=== PATIENT | female | born 1990 | race Caucasian/White ===

== ENCOUNTER 2023-03-18 22:15 | Inpatient (IN) | payer OTHER ==
[~2023-03-18] VITALS: Ht 165.1 cm; Wt 63.5 kg
[2023-03-18] MEDS ORDERED: ONDANSETRON HCL/PF 4 MG/2 ML VIAL ONE (22:48)
--- NOTE | 2023-03-18 22:58 | NUR ---
[id number] FROM HOME WITH CC OF N/V AND FEVER T=99.8 TOOK ADVIL 2PM.
[2023-03-18] MEDS ORDERED: ONDANSETRON HCL/PF 4 MG/2 ML VIAL IVP ONE (23:00)
[2023-03-18] MEDS ORDERED: IV NS 0.9% 1,000 ML BAG IV ONE (23:00)
[2023-03-18 23:34] LABS: BASOPHILS % (AUTO) 0.1 % (0.0-2.0); HEMATOCRIT 41 % (33-45); HEMOGLOBIN 13.4 g/dL (11.5-14.8); LYMPHOCYTES # (AUTO) 0.8 K/uL (0.8-4.8); LYMPHOCYTES % (AUTO) 3.7 % (20.0-44.0); MEAN CORPUSCULAR HGB CONC 33 g/dl (31.0-36.0); MEAN CORPUSCULAR VOLUME 84 fL (82-100); MONOCYTES # (AUTO) 0.8 K/uL (0.1-1.30); MONOCYTES % (AUTO) 3.8 % (2.0-12.0); NEUTROPHILS # (AUTO) 20.3 K/uL (1.8-8.9); NEUTROPHILS % (AUTO) 92.4 % (43.0-81.0); PLATELET COUNT (AUTO) 434 K/uL (150-450); RED BLOOD CELL COUNT(AUTO) 4.93 MIL/uL (4.0-5.2); WHITE BLOOD COUNT (AUTO) 21.9 K/uL (4.3-11.0)
[2023-03-18 23:43] LABS: CALCIUM, SERUM 9.8 mg/dL (8.5-10.1); CARBON DIOXIDE 19 mmol/L (21-32); CHLORIDE 103 mmol/L (98-107); CREATININE 0.7 mg/dL (0.6-1.3); GLUCOSE 134 mg/dL (74-106); POTASSIUM 3.3 mmol/L (3.5-5.1); SODIUM SERUM 139 mmol/L (136-145); UREA NITROGEN, BLOOD 9 mg/dL (7-18)
--- NOTE | 2023-03-18 23:55 | NUR ---
LACTIC ACID 3.1, DR ACKERMAN AWARE
[2023-03-19] LABS: ALANINE AMINOTRANSFERASE 30 U/L (12-78); ALKALINE PHOSPHATASE 57 U/L (46-116); ASPARTATE AMINOTRANSFERASE 16 U/L (15-37); BILIRUBIN,DIRECT 0.1 mg/dL (0.0-0.2); BILIRUBIN,TOTAL 0.6 mg/dL (0.2-1.0); LIPASE 226 U/L (73-393); TOTAL PROTEIN, SERUM 8.4 g/dL (6.4-8.2)
[2023-03-19] MEDS ORDERED: PIPERACILLIN /TAZOBACTAM 3.375 G in IV D5W 50 ML IV ONE (00:30)
[2023-03-19] MEDS ORDERED: IV NS 0.9% 1,000 ML BAG IV ONE (00:30)
--- NOTE | 2023-03-19 00:34 | NUR ---
MOVE SHEET SUBMITTED
--- NOTE | 2023-03-19 00:50 | NUR ---
Called from [place] family caseworker Jennifer Burks for update. CM updated and all questions answered.
--- NOTE | 2023-03-19 01:05 | NUR ---
COVID SWAB COLLECTED AND SENT TO LAB.
--- NOTE | 2023-03-19 01:37 | NUR ---
Per [place] shelter case manager Jennifer Burks, trying to transfer pt to [facility]
[2023-03-19] MEDS ORDERED: ONDANSETRON HCL/PF 4 MG/2 ML VIAL ONE (01:50)
--- NOTE | 2023-03-19 01:54 | NUR ---
REPEAT LACTIC ACID DONE BY CHANNEL DIRECTOR
[2023-03-19] MEDS ORDERED: PIPERACI/TAZO 3.375GM/D5W 50ML PB IV ONE (02:00)
--- NOTE | 2023-03-19 02:49 | NUR ---
LACTIC ACID 2.71
[2023-03-19 03:01] LABS: BILIRUBIN,URINE NEGATIVE (NEGATIVE); COLOR,URINE YELLOW (YELLOW); LEUKOCYTE ESTERASE ,URINE 3+ (NEGATIVE); NITRITE, URINE NEGATIVE (NEGATIVE); PROTEIN,URINE TRACE mg/dl (NEGATIVE); UGLUCOSE NEGATIVE (NEGATIVE); UROBILINOGEN,URINE 0.2 EU/dL (0.2)
[2023-03-19 03:16] LABS: BACTERIA,URINE Many /HPF (None Seen); WBC,URINE 51-80 /HPF (0-3)
--- NOTE | 2023-03-19 05:51 | NUR ---
DR TYRON PERES ON PHONE CALL WITH DR JAYDON PERES HOSPITALIST
[2023-03-19] MEDS ORDERED: ACETAMINOPHEN 325 MG TABLET PO PRN (06:00)
[2023-03-19] MEDS ORDERED: MORPHINE SULFATE INJ 2 MG/ML DISP.SYRIN IV PRN (06:00)
[2023-03-19] MEDS ORDERED: ONDANSETRON HCL/PF 4 MG/2 ML VIAL IVP PRN (06:00)
[2023-03-19] MEDS: IV NS 0.9% 1,000 ML IV SCH ×2 (06:32→21:45)
--- NOTE | 2023-03-19 07:48 | NUR ---
GOT BED 321-2 ADMITTING INFORMED.
--- NOTE | 2023-03-19 08:02 | NUR ---
REPORT GIVEN TO AMA MCCLENDON
--- NOTE | 2023-03-19 08:42 | NUR ---
PATIENT TRANSFERRED TO [facility], ALL CARE ENDORSED TO AMA MCCLENDON Addendum: 03/19/23 at 0843 darius GARRETT PATIENT WAS TRANSFERRED TO [facility]-
[2023-03-19] MEDS: CEFEPIME 2 GM in IV D5W 100 ML IV SCH ×2 (09:34→20:07)
[2023-03-19] MEDS: ENOXAPARIN SODIUM 40 MG/0.4 ML DISP.SYRIN SQ SCH (09:39)
--- NOTE | 2023-03-19 11:30 | NUR ---
STATISTICAL SECRETARYRELIABILITY MANAGER NOTES ADMITTED A 32 YO PATIENT FROM HOME AND C/C OF NAUSEA AND VOMITTING , FEVER AND PAIN ON THE RIGHT UPPER QUADRANT , CAME IN VIA GURNEY FROM ER , ABLE TO TRANSFER BY HERSELF FROM GURNEY TO BED , KEPT COMFORTABLE AND ON GOING IV CONTINUE FROM ER , IV ACCESS LEFT AC WITH NS @75 ML /HOUR , BODY ASSESSMENT DONE AND NO SKIN BREAKDOWN NOTED , ORACLE SQL DEVELOPER ATTACHED , V/S TAKEN AND RECORDED , ROOM AIR NO SOB OR DISTRESS NOTED , NO C/O OF PAIN AND DISCOMFORT NOTED , CONTINENT WITH BOWEL AND BLADDER AND BRP , ALL DUE MEDS GIVEN ORDERED , SAFETY MEASURES PROVIDED , CALL LIGHT WITHIN REACH , ALL NEEDS ATTENDED .
[2023-03-19 12:00] VITALS: BP 117/71
[2023-03-19 16:13] VITALS: BP 110/63
--- NOTE | 2023-03-19 19:11 | NUR ---
RN CLOSING NOTES PATIENT IN BED A/O X4 , WITH IV OF NS AT 75CC/HOUR , NO SOB AND DISTRESS , C/O OF PAIN HEADACHE AND TYLENOL GIVEN ORDERED, TELE READING WITH SR 91 , IV ACCESS WITH NS @75ML /HOURS , ABLE TO GO TO BATH ROOM STABLE AT THIS TIME AND ENDORSED TO NEXT SHIFT
--- NOTE | 2023-03-19 19:33 | NUR ---
RN OPENING NOTE; RECEIVED PT IN BED AWAKED AOX4 ABLE TO MAKE NEEDS KNOWN,ON RM AIR ROL WELL SAT 98%,NO SOB/DISTRESS NOTED,NO COMPLAIN OF PAIN/DISCOMFORT AT THIS TIME,IV ACCESS LAC 20G WITH NS 75ML/HR INFUSING WELL,SAFETY MEASURE IN PLACE,CALL LIGHT WITHIN REACH,WILL CONTINUE TO MONITOR.
[2023-03-19 20:00] VITALS: BP 115/66
[2023-03-19] MEDS ORDERED: POTASSIUM CHLORIDE 20 MEQ TAB.PRT.SR PO ONE (22:00)
[2023-03-20] VITALS (7 sets, daily range): BP systolic 104–130; BP diastolic 55–79
[2023-03-20 05:50] LABS: BASOPHILS % (AUTO) 0.2 % (0.0-2.0); EOSINOPHILS % (AUTO) 0.6 % (0.0-6.0); HEMATOCRIT 38 % (33-45); LYMPHOCYTES # (AUTO) 2.2 K/uL (0.8-4.8); LYMPHOCYTES % (AUTO) 13.5 % (20.0-44.0); MEAN CORPUSCULAR HGB CONC 32 g/dl (31.0-36.0); MEAN CORPUSCULAR VOLUME 85 fL (82-100); MONOCYTES # (AUTO) 1.1 K/uL (0.1-1.30); MONOCYTES % (AUTO) 6.5 % (2.0-12.0); NEUTROPHILS # (AUTO) 12.8 K/uL (1.8-8.9); NEUTROPHILS % (AUTO) 79.2 % (43.0-81.0); PLATELET COUNT (AUTO) 362 K/uL (150-450); RED BLOOD CELL COUNT(AUTO) 4.46 MIL/uL (4.0-5.2); WHITE BLOOD COUNT (AUTO) 16.2 K/uL (4.3-11.0)
[2023-03-20 06:16] LABS: ALBUMIN 3.1 g/dL (3.4-5.0); BILIRUBIN,TOTAL 0.3 mg/dL (0.2-1.0); CREATININE 0.5 mg/dL (0.6-1.3); MAGNESIUM 2.4 mg/dL (1.8-2.4); PHOSPHORUS 2.6 mg/dL (2.5-4.9); POTASSIUM 3.9 mmol/L (3.5-5.1)
--- NOTE | 2023-03-20 06:20 | NUR ---
RN CLOSING NOTE; PATIENT IN BED AWAKED AOX4 ABLE TO MAKE NEEDS KNOWN,ON RM AIR ROL WELL SAT 99%,NO SOB/DISTRESS NOTED,NO COMPLAIN OF PAIN/DISCOMFORT DURING SHIFT,DUE MEDS GIVEN ORDER,ALL NEEDS ATTENDED,IV ACCESS LAC 20G WITH NS 75ML/HR INFUSING WELL,BRP PT WITH STEADY GAIT,SAFETY MEASURE IN PLACE,CALL LIGHT WITHIN REACH,WILL ENDORSED TO NEXT SHIFT..
--- NOTE | 2023-03-20 08:00 | NUR ---
RUG DRY ROOM ATTENDANT OPENING NOTE Patient in bed, awake. A/O x 4, able to make needs known. On room air, breathing evenly and unlabored. No SOB or s/s of distress noted. IV access on ERICK #20 infusing NS at 75 ml/hr. On external panel monitor showing SR , HR 76. No complaints of pain or discomfort at this time. Safety precautions in place: bed in low, locked position; siderails up x 2; call light within reach. Will continue to monitor.
[2023-03-20] MEDS: IV NS 0.9% 1,000 ML IV SCH (08:40)
[2023-03-20] MEDS: ENOXAPARIN SODIUM 40 MG/0.4 ML DISP.SYRIN SQ SCH (08:41)
[2023-03-20] MEDS: CEFEPIME 2 GM in IV D5W 100 ML IV SCH (08:41)
[2023-03-20] MEDS ORDERED: CEFTRIAXONE 1 G in IV D5W 50 ML IV SCH ×2 (09:30→12:00)
[2023-03-20] MEDS ORDERED: Potassium Chloride 10 MEQ in IV NS 0.9% 1,000 ML IV PRN (09:30)
[2023-03-20] MEDS: Potassium Chloride 10 MEQ in IV NS 0.9% 1,000 ML IV SCH ×2 (11:10→21:40)
--- NOTE | 2023-03-20 19:28 | NUR ---
REAL ESTATE ATTORNEY CLOSING NOTE Patient in bed, resting. A/O x 4, able to make needs known. Stable on room air, breathing evenly and unlabored. No SOB or s/s of distress noted. IV access on LAC #20 infusing NS with 10 meqs Potassium at 100 ml/hr. On external elevated guard showing SR , HR on the 80's. No complaints of pain or discomfort at this time. All needs attended to. due meds given. Safety precautions in place: bed in low, locked position; siderails up x 2; call light within reach. Will endorse to pulp drier firer nurse for AH.
--- NOTE | 2023-03-20 19:50 | NUR ---
RN OPENING NOTE RECEIVED PT IN BED, AWAKE. PT A/O X4, ABLE TO MAKE NEEDS KNOWN. ON ROOM AIR, AND TOLERATING RA WELL. NO SOB, NO RESPIRATORY DISTRESS NOTED. PT ON TELE MONITOR READING SR WITH HR: 93. NO COMPLAIN OF PAIN, OR DISCOMFORT AT THIS TIME. IV ACCESS TO LEFT AC # 20G, WITH NS INFUSING AT 75ML/HR , IV INTACT, AND PATENT. SAFETY MEASURE IN PLACE: CALL LIGHT WITHIN REACH, BED IN LOW POSITION, SIDE RAILS UP X2. WILL CONTINUE TO MONITOR PT.
[2023-03-21 05:45] LABS: BASOPHILS % (AUTO) 0.4 % (0.0-2.0); EOSINOPHILS % (AUTO) 0.9 % (0.0-6.0); HEMATOCRIT 36 % (33-45); LYMPHOCYTES # (AUTO) 2.3 K/uL (0.8-4.8); LYMPHOCYTES % (AUTO) 23.5 % (20.0-44.0); MEAN CORPUSCULAR HGB CONC 33 g/dl (31.0-36.0); MEAN CORPUSCULAR VOLUME 83 fL (82-100); MONOCYTES # (AUTO) 0.6 K/uL (0.1-1.30); NEUTROPHILS # (AUTO) 6.9 K/uL (1.8-8.9); NEUTROPHILS % (AUTO) 69.2 % (43.0-81.0); PLATELET COUNT (AUTO) 395 K/uL (150-450); RED BLOOD CELL COUNT(AUTO) 4.36 MIL/uL (4.0-5.2); WHITE BLOOD COUNT (AUTO) 9.9 K/uL (4.3-11.0)
[2023-03-21 05:57] LABS: CALCIUM, SERUM 8.8 mg/dL (8.5-10.1); CREATININE 0.5 mg/dL (0.6-1.3); MAGNESIUM 2.1 mg/dL (1.8-2.4); POTASSIUM 3.3 mmol/L (3.5-5.1)
--- NOTE | 2023-03-21 06:36 | NUR ---
MS RN CLOSING NOTE LEFT PT IN BED, SLEEPING. PT A/O X4, ABLE TO MAKE NEEDS KNOWN. ON ROOM AIR, AND TOLERATING RA WELL. NO SOB, NO RESPIRATORY DISTRESS NOTED. PT IS NO LONGER ON TELE MONITOR . NO COMPLAIN OF PAIN, OR DISCOMFORT AT THIS TIME. IV ACCESS TO LEFT AC # 20G, WITH NS INFUSING AT 75ML/HR , IV INTACT, AND PATENT. SAFETY MEASURE IN PLACE: CALL LIGHT WITHIN REACH, BED IN LOW POSITION, SIDE RAILS UP X2. WILL ENDORSE PT TO INCOMING SHIFT NURSE FOR CONTINUITY OF CARE.
[2023-03-21] MEDS: Potassium Chloride 10 MEQ in IV NS 0.9% 1,000 ML IV SCH (06:51)
[2023-03-21 07:30] VITALS: BP 111/69
--- NOTE | 2023-03-21 07:54 | NUR ---
MS RN OPENING NOTE Patient in bed, awake. A/O x 4, able to make needs known. On room air, breathing evenly and unlabored. No SOB or s/s of distress noted. IV access on LAC #20 infusing NS with 10 meqs potassium at 75 ml/hr. No complaints of pain or discomfort at this time. Safety precautions in place: bed in low, locked position; siderails up x 2; call light within reach. Will continue to monitor.
[2023-03-21] MEDS ORDERED: LEVO250T59 PO (08:30)
[2023-03-21] MEDS ORDERED: POTASSIUM CHLORIDE 20 MEQ TAB.PRT.SR PO ONE ×2 (08:30→10:00)
[2023-03-21] MEDS: ENOXAPARIN SODIUM 40 MG/0.4 ML DISP.SYRIN SQ SCH (08:33)
--- NOTE | 2023-03-21 12:00 | NUR ---
PLANT NURSERY WORKER NOTES RECIEVED ORDER FOR DISCHARGE. PATIENT IS A/O X4, ABLE TO MAKE NEEDS KNOWN. STABLE ON ROOM AIR, NO SIGNS OF DISTRESS NOTED. DISCHARGE INSTRUCTION GIVEN, PATIENT VERBALIZED UNDERSTANDING. ALL BELONGINGS ACCOUNTED FOR, BELONGING SHEET SIGNED. PATIENT DENIES ANY PAIN OR DISCOMFORT AT THIS TIME. IV ACCESS REMOVED, CATHETER TIP INTACT AND PRESSURE DRESSING APPLIED. EXIT CARE FOLDER GIVEN, PATIENT LEFT IN STABLE CONDITION WITH .
== END 2023-03-21 11:15 | disposition home or self-care (01) | DRG 720 ==
LOC: ER 22:17 → TELE 03-19 08:13 → MED 03-20 13:19
PROVIDERS: ADMIT Internal Medicine; ATTEND Internal Medicine
DX: A41.9 Sepsis, unspecified organism (principal); E86.0 Dehydration; N39.0 Urinary tract infection, site not specified; N63.10 Unspecified lump in the right breast, unspecified quadrant
CPT/HCPCS: 36415; 71045-TC; 76700-TC; 80048-TC; 80053-TC; 80076-TC; 81001; 83605-TC; 83690-TC; 83735-TC; 84100-TC; 84703-TC; 85025-TC; 87040-TC; 87081-TC; 87086-TC; A4223; C9803; G0378; J0692; J0696; J1650; J2405; J2543; J3480; J7030; J7050; J7060

== ENCOUNTER 2023-03-31 17:18 | Emergency (ER) | payer OTHER ==
[~2023-03-31] VITALS: Ht 165.1 cm; Wt 63.5 kg
[~2023-03-31 17:18] MED LIST: LEVO250T59 PO
--- NOTE | 2023-03-31 17:45 | NUR ---
RECEIVED PT 32 YRS FEMALE REFFED FROM [facility] FOR ELEVATED WBC DINESES N/V OR ABDOMINALE PAIN
--- NOTE | 2023-03-31 18:00 | NUR ---
SEEN BY ABDULLAHI MEDINA
--- NOTE | 2023-03-31 18:10 | NUR ---
INSERTED ANGO CATHETER G 20 ON LT AC BLOOD DROW AND BLOOD CULTURE X 2 SENT TO LAB AND SENT TO LAB UA SENT BY BERTIN NURSE AMA
[2023-03-31] MEDS ORDERED: ONDANSETRON HCL/PF 4 MG/2 ML VIAL ONE (18:19)
[2023-03-31] MEDS ORDERED: ONDANSETRON HCL/PF 4 MG/2 ML VIAL IVP ONE (18:30)
[2023-03-31] MEDS ORDERED: IV NS 0.9% 1,000 ML BAG IV ONE (18:30)
[2023-03-31 19:07] LABS: BASOPHILS # (AUTO) 0.1 K/uL (0.0-0.2); BASOPHILS % (AUTO) 0.3 % (0.0-2.0); EOSINOPHILS % (AUTO) 0.3 % (0.0-6.0); HEMATOCRIT 39 % (33-45); HEMOGLOBIN 12.7 g/dL (11.5-14.8); LYMPHOCYTES # (AUTO) 2.2 K/uL (0.8-4.8); LYMPHOCYTES % (AUTO) 11.5 % (20.0-44.0); MEAN CORPUSCULAR HGB CONC 32 g/dl (31.0-36.0); MEAN CORPUSCULAR VOLUME 83 fL (82-100); MONOCYTES # (AUTO) 0.5 K/uL (0.1-1.30); MONOCYTES % (AUTO) 2.6 % (2.0-12.0); NEUTROPHILS # (AUTO) 16.2 K/uL (1.8-8.9); NEUTROPHILS % (AUTO) 85.3 % (43.0-81.0); PLATELET COUNT (AUTO) 493 K/uL (150-450); RED BLOOD CELL COUNT(AUTO) 4.72 MIL/uL (4.0-5.2); WHITE BLOOD COUNT (AUTO) 18.9 K/uL (4.3-11.0)
--- NOTE | 2023-03-31 19:20 | NUR ---
HAND OFF DOROTA SERRATO
[2023-03-31 19:40] LABS: CALCIUM, SERUM 9.6 mg/dL (8.5-10.1); CARBON DIOXIDE 27 mmol/L (21-32); CHLORIDE 105 mmol/L (98-107); CREATININE 0.7 mg/dL (0.6-1.3); GLUCOSE 103 mg/dL (74-106); POTASSIUM 3.6 mmol/L (3.5-5.1); SODIUM SERUM 140 mmol/L (136-145); UREA NITROGEN, BLOOD 14 mg/dL (7-18)
[2023-03-31 19:49] LABS: ALANINE AMINOTRANSFERASE 32 U/L (12-78); ALBUMIN 3.8 g/dL (3.4-5.0); ALKALINE PHOSPHATASE 55 U/L (46-116); ASPARTATE AMINOTRANSFERASE 15 U/L (15-37); BILIRUBIN,TOTAL 0.2 mg/dL (0.2-1.0); TOTAL PROTEIN, SERUM 8.2 g/dL (6.4-8.2)
[2023-03-31 19:50] LABS: BILIRUBIN,URINE NEGATIVE (NEGATIVE); COLOR,URINE YELLOW (YELLOW); LEUKOCYTE ESTERASE ,URINE NEGATIVE (NEGATIVE); NITRITE, URINE NEGATIVE (NEGATIVE); PROTEIN,URINE NEGATIVE (NEGATIVE); UGLUCOSE NEGATIVE (NEGATIVE); UROBILINOGEN,URINE 0.2 EU/dL (0.2)
[2023-03-31 20:00] LABS: BACTERIA,URINE None seen /HPF (None Seen); WBC,URINE 0-2 /HPF (0-3)
[2023-03-31 20:01] LABS: MUCUS,URINE Few /LPF (None Seen); URIC ACID CRYSTALS,URINE Many /HPF (None Seen)
[2023-03-31] MEDS ORDERED: DOCU-141 PO (21:15)
[2023-03-31] MEDS ORDERED: HYDR30CR79 TP (21:15)
[2023-03-31] MEDS ORDERED: ONDA4TAB5 PO (21:15)
[2023-03-31 21:59] VITALS: BP 118/81
--- NOTE | 2023-03-31 22:00 | NUR ---
Patient discharged to home in stable condition. Written and verbal after care instructions given. Patient verbalizes understanding of instruction.
== END 2023-03-31 22:01 | disposition home or self-care (01) ==
LOC: ER 17:24
DX: D72.829 Elevated white blood cell count, unspecified (principal); Z98.890 Other specified postprocedural states; Z79.899 Other long term (current) drug therapy
CPT/HCPCS: 99285; 96374; 71045; 96361; 93005; 84145; 85025; 80048; 87040 ×2; 87086; 83605; 80076; 81001; 36415; 84484; 85730; J2405; J7030

== ENCOUNTER 2023-04-11 19:22 | Emergency (ER) | payer OTHER ==
[~2023-04-11] VITALS: Ht 165.1 cm; Wt 63.5 kg
[~2023-04-11 19:22] MED LIST changes: +DOCU-141 PO; +HYDR30CR79 TP; +ONDA4TAB5 PO
--- NOTE | 2023-04-11 21:15 | NUR ---
C/O Lt foot pain/swelling, heavy object fell on foot at 2pm today, A/O X 4, On room air, afebrile. No s/s of distress noted. placed on bed corfortably. Connected to monitor. 06/08 left foot pain.
--- NOTE | 2023-04-11 21:42 | NUR ---
xray at bedside
[2023-04-11] MEDS ORDERED: IBUP-1953 PO (22:26)
[2023-04-11] MEDS ORDERED: IBUPROFEN 600 MG TABLET ONE (22:29)
[2023-04-11] MEDS: IBUPROFEN 600 MG TABLET PO ONE (22:35)
[2023-04-11 22:36] VITALS: BP 108/74; TEMP 97.9
--- NOTE | 2023-04-11 22:37 | NUR ---
Patient discharged to home in stable condition. Ambulatory. Written and verbal after care instructions given. Patient verbalizes understanding of instruction.
== END 2023-04-11 22:37 | disposition home or self-care (01) ==
LOC: ER 19:24
DX: S90.32XA Contusion of left foot, initial encounter (principal); Z98.890 Other specified postprocedural states; Z79.899 Other long term (current) drug therapy; W20.8XXA Other cause of strike by thrown, projected or falling object, initial encounter; Y93.89 Activity, other specified; Y92.89 Other specified places as the place of occurrence of the external cause; Y99.8 Other external cause status
CPT/HCPCS: 73630-TC